=== PATIENT | male | born 1995 | race Caucasian/White ===

== ENCOUNTER 2024-12-04 23:22 | Inpatient (IN) | payer OTHER, SELFPAY ==
[2024-12-04 23:54] LABS: #Basophils 0.04 10x3/uL (0.0-0.2); #Eosinophils 0.84 10x3/uL (0.0-0.7); #Monocytes 0.61 10x3/uL (0.11-0.59); #Neutrophils 8.27 10x3/uL (1.40-6.50); %Basophils 0.4 % (0.0-1.0); %Eosinophils 7.6 % (0.0-10.0); %Lymphocytes 11.1 % (21.0-51.0); %Monocytes 5.5 % (0.0-10.0); %Neutrophils 75.0 % (42.0-75.0); Hematocrit 41.7 % (42.0-52.0); Hemoglobin 13.6 g/dL (14.0-18.0); Mean Corpuscular Hemoglobin 28.6 pg (27.0-31.0); Mean Corpuscular Volume 87.6 fL (78.0-98.0); Platelet Count 323 10x3/uL (130-400); Red Blood Cell (RBC) Count 4.76 mill/uL (4.70-6.10); White Blood Cell (WBC) Count 11.02 10x3/uL (4.8-10.8)
[2024-12-05 00:10] LABS: ALT (SGPT) 36 U/L (Less than 45); AST (SGOT) 31 U/L (11-34); Albumin 4.2 g/dL (3.1-4.5); Alkaline Phosphatase 78 U/L (40-110); Anion Gap 11 mmol/L (10-20); BUN (Urea Nitrogen) 11 mg/dL (8.9-20.6); Bilirubin, Total 0.3 mg/dL (0.3-1.2); Calc. Creatinine Clearance 0 mL/min (70-130); Calcium 9.1 mg/dL (7.8-10.44); Carbon Dioxide 24 mmol/L (22-29); Chloride 114 mmol/L (98-107); Globulin 2.1 g/dL (2.4-3.5); Glucose 90 mg/dL (70-105); Potassium 4.4 mmol/L (3.5-5.1); Sodium 145 mmol/L (136-145)
[2024-12-05 00:11] LABS: Acetaminophen Less than 10 mcg/mL (Less than 10); CK (CPK) 347 U/L (30-200); Salicylate Less than 8.0 mg/dL (Less than 8.0)
[2024-12-05 00:41] LABS: Actual Bicarbonate (HCO3v) 24.5 mEq/L (22-28); Base Excess -0.3 mEq/L (-2.0 to +3.0); Calcium, Ionized (venous) 1.14 mmol/L (1.16-1.32); Chloride (VBG) 110 mmol/L (98-106); Hematocrit-VBG 42 % (42.0-52.0); Hemoglobin (Hb) 14.4 g/dL (13.2-17.3); Potassium (VBG) 4.04 mmol/L (3.70-5.30)
[2024-12-05 00:43] LABS: Sodium 151 mmol/L (133-146)
[2024-12-05 00:57] LABS: Cocaine Metabolite Screen Negative (Negative); THC/Cannabinoid Screen PRELIM POSITIVE (Negative); Tricyclic Screen Negative (Negative)
[2024-12-05 01:20] LABS: Bacteria/HPF None Seen HPF (None Seen); CAUTI Indications for Culture Alt mental st,lethar; Glucose, Urine (Dipstick) Normal (Negative); Leukocyte 250 Leu/uL (Negative); Protein, Urine (Dipstick) 20 mg/dL (Neg-Trace); RBC/HPF 0-3 HPF (0-3); Specific Gravity, Urine 1.025 (1.002-1.036); WBC/HPF 21-50 HPF (0-3)
[2024-12-05 01:21] LABS: Sperm/HPF 3+ HPF (None Seen)
[2024-12-05 01:22] LABS: Urine Culture Reflex Yes Yes
[2024-12-05] MEDS ORDERED: Calcium Carbonate 500 MG ChewTAB PO PRN (02:46)
[2024-12-05] MEDS ORDERED: Acetaminophen 325 MG TAB PO PRN (02:46)
[2024-12-05] MEDS ORDERED: Ondansetron PF 4 MG/2 ML Vial IVP PRN (02:46)
[2024-12-05 03:58] VITALS: BMI 24.0
[2024-12-05 07:32] LABS: Anion Gap 10 mmol/L (10-20); BUN (Urea Nitrogen) 8 mg/dL (8.9-20.6); CK (CPK) 375 U/L (30-200); Calc. Creatinine Clearance 133 mL/min (70-130); Calcium 8.1 mg/dL (7.8-10.44); Carbon Dioxide 25 mmol/L (22-29); Chloride 112 mmol/L (98-107); Glucose 88 mg/dL (70-105); Magnesium 1.9 mg/dL (1.6-2.6); Potassium 3.4 mmol/L (3.5-5.1); Sodium 144 mmol/L (136-145)
[2024-12-05] MEDS: Enoxaparin 40 MG (0.4 mL) SYRINGE SC SCH (08:13)
[2024-12-05] MEDS: Pantoprazole 40 MG VIAL IVP SCH (08:13)
[2024-12-05] MEDS: Potassium Chloride 20 MEQ in Premix 1 BAG IVPB SCH (09:47)
[2024-12-06 05:00] LABS: #Basophils 0.03 10x3/uL (0.0-0.2); #Eosinophils 0.82 10x3/uL (0.0-0.7); #Monocytes 0.48 10x3/uL (0.11-0.59); #Neutrophils 3.86 10x3/uL (1.40-6.50); %Basophils 0.5 % (0.0-1.0); %Eosinophils 12.5 % (0.0-10.0); %Lymphocytes 20.9 % (21.0-51.0); %Monocytes 7.3 % (0.0-10.0); %Neutrophils 58.6 % (42.0-75.0); Hematocrit 36.9 % (42.0-52.0); Hemoglobin 11.9 g/dL (14.0-18.0); Mean Corpuscular Hemoglobin 28.6 pg (27.0-31.0); Mean Corpuscular Volume 88.7 fL (78.0-98.0); Platelet Count 224 10x3/uL (130-400); Red Blood Cell (RBC) Count 4.16 mill/uL (4.70-6.10); White Blood Cell (WBC) Count 6.57 10x3/uL (4.8-10.8)
[2024-12-06 05:47] LABS: ALT (SGPT) 24 U/L (Less than 45); AST (SGOT) 30 U/L (11-34); Albumin 3.3 g/dL (3.1-4.5); Alkaline Phosphatase 62 U/L (40-110); Anion Gap 9 mmol/L (10-20); BUN (Urea Nitrogen) 7 mg/dL (8.9-20.6); Bilirubin, Total 0.5 mg/dL (0.3-1.2); CK (CPK) 263 U/L (30-200); Calc. Creatinine Clearance 123 mL/min (70-130); Calcium 8.2 mg/dL (7.8-10.44); Carbon Dioxide 23 mmol/L (22-29); Chloride 109 mmol/L (98-107); Globulin 2.0 g/dL (2.4-3.5); Glucose 86 mg/dL (70-105); Potassium 3.7 mmol/L (3.5-5.1); Sodium 137 mmol/L (136-145)
[2024-12-06] MEDS ORDERED: ALPRAZolam 0.5 MG TAB PO PRN (09:21)
[2024-12-07 08:02] VITALS: TEMP 98
[2024-12-07] MEDS: Pantoprazole 40 MG DR.TAB PO SCH (08:59)
[2024-12-07 11:31] VITALS: BP 138/96
== END 2024-12-07 13:42 | DRG 917 ==
LOC: EEVIPCON 23:22 → ERS 23:22 → CCU 12-05 03:21 → 2NO 12-06 13:47
PROVIDERS: ADMIT Student in an Organized Health Care Education/Training Program; ATTEND Internal Medicine
DX: T43.651A Poisoning by methamphetamines accidental (unintentional), initial encounter (principal); G93.41 Metabolic encephalopathy; T40.411A Poisoning by fentanyl or fentanyl analogs, accidental (unintentional), initial encounter; F19.10 Other psychoactive substance abuse, uncomplicated; L30.8 Other specified dermatitis; Z88.0 Allergy status to penicillin
CPT/HCPCS: 36415; 36416; 71045; 74018; 80048; 80053; 80306; 80307; 81001; 82550; 82805; 83605; 83735; 84100; 84484; 85025; 87086; 93005; J1650; J2060; J2250; J2470; J3480; J7120